=== PATIENT | male | born 1995 | race Caucasian/White ===

== ENCOUNTER → 2024-02-13 | Outpatient (CLI) | payer OTHER | LOC: M CARPUL 10:03 | PROVIDERS: ATTEND Physician Assistant | DX: J45.40 Moderate persistent asthma, uncomplicated (principal) ==

== ENCOUNTER → 2025-04-21 | Outpatient (CLI) | payer OTHER | LOC: M CARPUL 07:53 | PROVIDERS: ATTEND Physician Assistant | DX: Z13.89 Encounter for screening for other disorder (principal) ==